=== PATIENT | female | born 1965 | race Two or more races ===

== ENCOUNTER 2019-11-01 11:57 | Outpatient (CLI) | payer OTHER | END 2019-11-01 12:11 | disposition home or self-care (01) | LOC: SONOGRAMA 11:57 | PROVIDERS: ATTEND Obstetrics & Gynecology | DX: N85.01 Benign endometrial hyperplasia (principal) ==

== ENCOUNTER 2019-12-18 06:14 | Day surgery (SDC) | payer OTHER ==
[~2019-12-18 06:14] MED LIST: FLONASE16 GM; SINGULAIR10 MG PO
== END 2019-12-18 13:15 | disposition home or self-care (01) ==
LOC: CIR.AMB 06:14 → ADM 12:15 → CIR.AMB 13:15
PROVIDERS: ATTEND Obstetrics & Gynecology
DX: N84.0 Polyp of corpus uteri (principal); Z20.828 Contact with and (suspected) exposure to other viral communicable diseases